=== PATIENT | male | born 2000 | race Two or more races ===

== ENCOUNTER 2019-12-28 17:19 | Emergency (ER) | payer MEDICAID, SELFPAY ==
[2019-12-28 17:24] VITALS: BP 133/78; PULSE 109; RESP 16; TEMP 36.8; O2SAT 97; BMI 41.3
--- NOTE | 2019-12-28 19:30 | ED_ITS ---
HPI - General Adult General Chief complaint: General Medical Stated complaint: blood in stool Time Seen by Provider: 12/28/19 19:30 History of Present Illness HPI narrative: Patient complains of several episodes of blood in the stool as well as intermittent abdominal pain epigastric area which is coming and going, he has no pain at this moment he has had no vomiting, yesterday he had multiple episodes of diarrhea associated with some blood mixed with the stool and today he had 2 episodes of small amounts of red blood in the toilet, there is no dizziness no weakness no fever no chills no chest pain and at this moment he has no abdominal pain, he is able to eat and drink Related Data Allergies Allergy/AdvReac Type Severity Reaction Status Date / Time nickel [NICKEL] Allergy Unknown RASH Unverified 10/27/19 19:16 Review of Systems Review of Systems: ROS is positive for blood in the stool, intermittent abdominal pain and diarrhea There is no weakness no fainting no bleeding from any other sites , no gum bleeding no nose bleeding no rash, no chest pain no dizziness no shortness of breath no palpitations, no trouble eating or drinking, no urinary symptom no pain with urination or frequency of urination PMFSH Past Medical History Source: nursing notes reviewed Medical History (Updated 12/28/19 @ 20:50 by KARLEE Hamlin) Asthma Social History Social History Alcohol intake: never Smoking Status: Never smoker Advance Directives: No Advance Directives Information Provided: Yes Physical Exam Vital Signs: Vital Signs: Last Vital Signs Temp 98.5 F 12/28/19 20:39 Pulse 99 12/28/19 20:39 Resp 18 12/28/19 20:39 BP 123/82 12/28/19 20:39 Pulse Ox 96 12/28/19 20:39 Body Mass Index 41.3 General appearance is no acute distress he is anicteric no pallor comfortable appearing and cooperative, a and O x3 The pharynx is clear and well hydrated the eyes are clear with no redness, anicteric no pallor Neck is supple Chest is clear to auscultation bilaterally The abdomen is soft and nontender no rebound no guarding Rectal exam there were no masses palpated there was no obvious blood on the glove, there was no black stool on the glove no lesions, no hemorrhoid, there was no tenderness There is no rashes there is no petechiae No leg swelling or edema neuro no focal deficit Course Course Course Narrative: Patient remains comfortable throughout visit with normal vital signs, no dizziness, normal hemoglobin hematocrit, normal platelets Stool was guaiac positive although no visible blood or black stool was on the glove Case is signed out to physician respiratory therapist assistant jacki at 09:00 o'clock to follow remaining LFTs and electrolyte panel and if normal to discharge patient Bleeding is likely from irritation from his diarrhea which was only 1 day in duration and is very inproved today Medical Decision Making Lab Data Lab results reviewed: Yes I reviewed the patient's lab results. Result diagrams: 12/28/19 20:20 12/28/19 20:20 Labs: Lab Results 12/28/19 12/28/19 Range/Units 20:20 20:20 WBC 16.3 H (4.8-10.8) X10*3/uL RBC 5.22 (4.60-5.80) X10*6/uL Hgb 16.0 (14.0-18.0) g/dl Hct 46.9 (42-52) % MCV 89.8 (80-98) fL MCH 30.7 (27.0-33.0) pg MCHC 34.1 (31.0-36.0) g/dl RDW 12.2 (11.0-16.0) % Plt Count 256 (160-400) X10*3/uL MPV 10.7 (9.4-12.4) fL Immature Gran % (Auto) 0.7 H (0.0-0.4) % Neut % (Auto) 63.4 (45-73) % Lymph % (Auto) 24.1 (20-40) % Morrill % (Auto) 7.0 (2-11) % Eos % (Auto) 4.2 H (0-4) % Baso % (Auto) 0.6 (0-2) % Lymph # (Auto) 3.9 (1.2-4.9) X10*3/uL Morrill # (Auto) 1.1 (0.1-1.2) X10*3/uL Eos # (Auto) 0.7 H (0.0-0.4) X10*3/uL Baso # (Auto) 0.1 (0.0-0.2) X10*3/uL Abs Immat Gran (auto) 0.11 H (0.00-0.03) X10*3/uL Absolute Neuts (auto) 10.3 H (2.0-8.3) X10*3/uL Absolute Nucleated RBC 0.000 (0.0-0.012) X10*3/uL Nucleated RBC % (auto) 0.0 (0.0-0.2) /100WBC Stool Occult Blood POS (NEG) Discharge Plan Discharge Clinical Impression: Rectal bleeding Diarrhea Qualifiers: Diarrhea type: unspecified type Qualified Code(s): R19.7 - Diarrhea, unspecified Patient Disposition: Home, Self-Care Additional Instructions: There is often some bleeding associated with diarrhea As symptoms have improved after just 24 hours there is no specific treatment needed now, your blood count was normal there was no anemia If symptoms continue you can use Imodium or Pepto-Bismol If bleeding worsens or if you become dizzy or weak or pain gets worse or any worse condition or concerns you can return to the ER any time Follow with primary care physician if not better in 2-3 days drink plenty of fluids
--- NOTE | 2019-12-28 19:48 | PC.NURSE ---
MD AT BEDSIDE FOR PRIMARY EVAL. PT REPORTS BRIGHT RED DIARRHEA BEGINNING YESTERDAY. REPORTS INTERMITTENT ABD PAIN, DENIES URINARY SYMPTOMS. DENIES N/V. AWAITING TESTING. AWARE OF PLAN OF CARE.
[2019-12-28 20:26] LABS: OBS Int Ctl Valid YES; OBS1 POS (NEG)
[2019-12-28 20:27] LABS: MANUAL DIFF FLAG NO
[2019-12-28 20:29] LABS: Basophils Absolute Auto 0.1 X10*3/uL (0.0-0.2); Basophils Percent Auto 0.6 % (0-2); Eosinophils Absolute Auto 0.7 X10*3/uL (0.0-0.4); Eosinophils Percent Auto 4.2 % (0-4); Hematocrit 46.9 % (42-52); Imm Gran Abs Auto 0.11 X10*3/uL (0.00-0.03); Imm Gran Pct Auto 0.7 % (0.0-0.4); Lymphocytes Absolute Auto 3.9 X10*3/uL (1.2-4.9); Lymphocytes Percent Auto 24.1 % (20-40); Mean Corpuscular HGB Conc 34.1 g/dl (31.0-36.0); Mean Corpuscular Hemoglobin 30.7 pg (27.0-33.0); Mean Corpuscular Volume 89.8 fL (80-98); Mean Platelet Volume 10.7 fL (9.4-12.4); Monocytes Absolute Auto 1.1 X10*3/uL (0.1-1.2); Neutrophils Absolute Auto 10.3 X10*3/uL (2.0-8.3); Neutrophils Percent Auto 63.4 % (45-73); Platelet Count 256 X10*3/uL (160-400); Red Blood Count 5.22 X10*6/uL (4.60-5.80); Red Cell Distribution Width 12.2 % (11.0-16.0); White Blood Count 16.3 X10*3/uL (4.8-10.8)
[2019-12-28 20:39] VITALS: BP 123/82; PULSE 99; RESP 18; TEMP 36.9; O2SAT 96
[2019-12-28 20:56] LABS: Alanine Aminotransferase 70 U/L (0-40); Albumin Level 4.5 g/dL (3.5-5.0); Alkaline Phosphatase 99 U/L (39-117); Anion Gap 15 (12-20); Aspartate Amino Transferase 38 U/L (5-37); Bilirubin Direct < 0.2 mg/dL (0.0-0.5); Bilirubin Total 0.4 mg/dL (0.0-1.0); Blood Urea Nitrogen 15 mg/dL (9-16); Calcium 9.7 mg/dL (8.4-10.2); Carbon Dioxide 22 mmol/L (22-29); Chloride 103 mmol/L (96-108); Creatinine Clr Calc Pharmacy 171.7; Estimated Glomerular Filt Rate > 60; Glucose Random 85 mg/dL (60-115); Lipase 23 U/L (8-78); Potassium 4.2 mmol/l (3.3-5.1); Sodium 136 mmol/L (135-145); Total Protein 7.6 g/dL (6.5-8.0)
== END 2019-12-28 21:21 | disposition home or self-care (01) ==
PROVIDERS: Physician Assistant Medical; Emergency Provider Emergency Medicine
DX: K62.5 Hemorrhage of anus and rectum (principal); R19.7 Diarrhea, unspecified; R10.13 Epigastric pain
CPT/HCPCS: 36415; 80048; 80076; 82272; 83690; 85025; 99283; 99284

== ENCOUNTER 2020-03-03 11:19 | Outpatient (REF) | payer MEDICAID, SELFPAY | END 2020-03-03 11:20 | disposition home or self-care (01) | LOC: HO.LAB 11:19 | PROVIDERS: Visit Provider Internal Medicine | DX: Z20.822 Contact with and (suspected) exposure to COVID-19 (principal) | CPT/HCPCS: 36415; C9803; U0003 ==

== ENCOUNTER 2020-05-22 08:24 | Outpatient (REF) | payer MEDICAID, SELFPAY ==
[2020-05-22 09:14] LABS: COVID-19 Test Negative (Negative)
[2020-05-22 09:15] LABS: IDNOW Serial# 55D5AD1C
== END 2020-05-22 08:25 | disposition home or self-care (01) ==
LOC: HO.LAB 08:24
PROVIDERS: Visit Provider Internal Medicine
DX: Z20.822 Contact with and (suspected) exposure to COVID-19 (principal)
CPT/HCPCS: 36415; 87635; C9803

== ENCOUNTER 2020-07-26 14:36 | Emergency (ER) | payer MEDICAID, SELFPAY ==
[2020-07-26 15:15] VITALS: BP 150/60; PULSE 62; RESP 17; TEMP 36.9; O2SAT 100; BMI 38.0
--- NOTE | 2020-07-26 15:36 | ED.GENADULT ---
HPI - General Adult General Chief complaint: General Medical Stated complaint: cold symptoms Source: patient Mode of arrival: ambulatory Limitations: no limitations History of Present Illness HPI narrative: Patient presents ED for sneezing and coughing since yesterday. patient denies any chest pain or shortness of breath. patient states malaise, but no fever or chills. Related Data Previous Rx's Medication Instructions Recorded benzonatate [Tessalon Perles] 100 mg PO BID PRN #15 cap 07/26/20 cetirizine 10 mg PO DAILY PRN #10 cap 07/26/20 Allergies Allergy/AdvReac Type Severity Reaction Status Date / Time nickel [NICKEL] Allergy Unknown RASH Verified 07/26/20 15:17 Review of Systems Review of Systems: Yes all other systems are reviewed and are negative Constitutional: Constitutional: Reports as per HPI and Reports no additional constitutional complaints Eyes: Eyes: Reports as per HPI and Reports no additional eye complaints ENT: Reports system reviewed and no additional complaints, except as documented and Reports as per HPI Comments: Sneezing Cardiovascular: Cardiovascular: Reports as per HPI, Reports no additional cardiovascular complaints, Denies chest pain and Denies dyspnea Respiratory: Respiratory: Reports as per HPI, Reports no additional respiratory complaints, Reports cough, Denies pain on inspiration and Denies dyspnea Gastrointestinal: Gastrointestinal: Reports as per HPI, Reports no additional gastrointestinal complaints, Denies abdominal pain, Denies diarrhea, Denies nausea, Denies vomiting and Denies hematemesis Genitourinary: Genitourinary: Reports no additional male genitourinary complaints and Reports as per HPI Musculoskeletal: Musculoskeletal: Reports no additional musculoskeletal complaints and Reports as per HPI Neurologic: Reports system reviewed and no additional complaints, except as documented and Reports as per HPI [facility] Past Medical History Medical History (Updated 07/26/20 @ 16:39 by KARLEE Kenny) Asthma Social History Social History Alcohol intake: never Advance Directives: No Advance Directives Information Provided: No Physical Exam Vital Signs: Vital Signs: Last Vital Signs Temp 98.5 F 07/26/20 15:15 Pulse 62 07/26/20 15:15 Resp 17 07/26/20 15:15 BP 150/60 H 07/26/20 15:15 Pulse Ox 100 07/26/20 15:15 Body Mass Index 38.0 Const: General: cooperative, healthy appearing, comfortable, no acute distress, well developed, alert, awake and Physically active Orientation/consciousness: patient oriented x3 HENMT: Head: Yes normal to inspection, Yes No palpable skull fracture present, Yes normocephalic and Yes atraumatic Ears: hearing grossly normal bilaterally, external ears normal and TM's normal bilaterally General nose exam: Normal external nose present and Normal nares present Eyes: General: appearance normal, both eyes and all related structures Neck: Neck: Yes normal visual inspection, Yes full ROM, Yes no lymphadenopathy, Yes no meningeal signs, Yes trachea midline, Yes supple and No tender Chest: Chest palpation & inspection: normal inspection of the chest and normal palpation of entire chest wall Resp: Effort & Inspection: normal respiratory effort and able to speak in complete sentences Auscultation: clear to auscultation bilaterally Cardio: Jugular venous distension: no JVD Heart sounds: S1 normal heart sound present and S2 normal heart sound present GI: Inspection: Yes normal to inspection and No abdominal wall ecchymosis Palpation (GI): Soft to palpation, not firm, nontender, no guarding and not rigid : General: No CVA tenderness and Yes no CVA tenderness Back/Spine/Pelvis: Back: no CVA tenderness, No CVA tenderness and No back tenderness Skin: General skin exam: no rashes or lesions noted and elasticity normal Neuro: General: patient oriented x3, gait normal, no meningeal signs and CN's II-XI intact bilaterally Cranial nerves: Yes CN's II-XII intact bilaterally Extrem: General: Yes normal to inspection and Yes full ROM Psych: Appearance: grossly normal, well kempt and not disheveled Course Course Course Narrative: will order COVID swab for patient. Patient vital signs stable Reevaluation(s) Reevaluation #1: Patient's COVID swab came back negative. Time: 16:37 Medical Decision Making [facility] Narrative Medical decision making narrative: URI versus Rhinitis Lab Data Labs: Lab Results 07/26/20 Range/Units 15:54 COVID-19 (DA) Negative (Negative) COVID-19 Clin Com See Note Discharge Plan Discharge Clinical Impression: URI (upper respiratory infection) Patient Disposition: Home, Self-Care Instructions: Upper Respiratory Infection (ED), Allergic Rhinitis (ED) Additional Instructions: You were diagnosed with URI vs allergic rhinitis due to sneezing and cougning. Return to the ED for any chest pain, shortness of breath, leg swelling, coughing up blood, fever, chills, or any other concerning symptoms. A COVID swab came back negative. This may be a false negative due to you having symptoms yesterday and being testing today. Body might not have had enough viral load. IF Symptoms worsen recommend retesting in 72 hours or self-quarantine. please follow up with PCP Prescriptions: New benzonatate [Tessalon Perles] 100 mg capsule 100 mg PO BID PRN (Reason: cough) Qty: 15 RF: 0 cetirizine 10 mg capsule 10 mg PO DAILY PRN (Reason: sneezing) Qty: 10 RF: 0 Stand Alone Forms: Work/School Release Interventions: ED Discharge Assessment Last Done: 07/26/20 16:49 Discharge Date/Time: 07/26/20 16:49 Print Language: Macedonian
[2020-07-26 16:17] LABS: COVID-19 Test Negative (Negative)
== END 2020-07-26 16:49 | disposition home or self-care (01) ==
PROVIDERS: Physician Assistant; Emergency Provider Emergency Medicine
DX: J06.9 Acute upper respiratory infection, unspecified (principal); Z20.822 Contact with and (suspected) exposure to COVID-19
CPT/HCPCS: 36415; 87635; 99283

== ENCOUNTER 2023-01-01 18:32 | Emergency (ER) | payer MEDICAID, SELFPAY ==
[2023-01-01 18:56] VITALS: BP 139/76; PULSE 95; RESP 18; TEMP 37.1; O2SAT 95; BMI 37.6
--- NOTE | 2023-01-01 19:01 | ED_ITS ---
HPI - General Adult General Chief complaint: Ear Problems Stated complaint: cotton stuck in lt ear Time Seen by Provider: 01/01/23 19:00 Source: patient Mode of arrival: ambulatory Limitations: no limitations History of Present Illness HPI narrative: Patient is a 22-year-old male presenting to the emergency department with complaint of Q-tip cotton stuck in left ear canal for approximately 1 hour. He denies pain or difficulty hearing. MD complaint: foreign body left ear Onset (ago): hour(s) Location: left (ear) Relieving factors: none Exacerbating factors: none Associated symptoms: denies other symptoms Treatments prior to arrival: none Related Data Previous Rx's Medication Instructions Recorded benzonatate 100 mg capsule 100 mg PO BID PRN cough #15 caps 07/26/20 (Teshayley Mendoza) cetirizine 10 mg capsule 10 mg PO DAILY PRN sneezing #10 07/26/20 caps Allergies Allergy/AdvReac Type Severity Reaction Status Date / Time nickel [NICKEL] Allergy Unknown RASH Verified 01/01/23 18:59 Review of Systems Review of Systems: As per HPI. Yes all other systems are reviewed and are negative Constitutional: Constitutional: Reports as per HPI [facility] Past Medical History Medical History (Updated 01/01/23 @ 19:02 by Lacey Cheek NP) Asthma Social History Alcohol intake: never Physical Exam ED Vital Signs: Vital Signs - 24 hr 01/01/23 18:56 Temperature 98.8 F Pulse Rate 95 Respiratory Rate 18 Blood Pressure 139/76 Pulse Oximetry 95 Oxygen Delivery Method Room Air BMI result Body Mass Index 37.6 Vital signs have been reviewed and appear to be correct. Blood pressure normal. Heart rate normal. Respiratory rate normal. Temperature normal. Oxygen saturation normal. Const General: cooperative, healthy appearing and no acute distress Orientation/consciousness: oriented to person, oriented to place, oriented to time and patient oriented x3 Limitations: no limitations HENMT Head: Yes normocephalic and Yes atraumatic Ears: external ears normal and Abnormal EAC present foreign body on the left (cotton) General nose exam: Normal external nose present Face and sinus: Yes face symmetric Mouth: oropharynx normal and moist mucous membranes Throat: Yes uvula midline Eyes Pupils: Equal, round and reactive pupils present Neck Neck: Yes normal visual inspection and Yes supple Resp Effort & Inspection: normal respiratory effort and able to speak in complete sentences Auscultation: clear to auscultation bilaterally Cardio Rate: regular rate Rhythm: regular rhythm Heart sounds: S1 normal heart sound present and S2 normal heart sound present GI Palpation (GI): Soft to palpation and nontender Auscultation: normoactive bowel sounds General: Yes no CVA tenderness Back/Spine/Pelvis Back: no CVA tenderness Skin General skin exam: elasticity normal and turgor normal Neuro General: oriented to person, oriented to place, oriented to time, patient oriented x3, moves all extremities, no focal motor deficits and CN's II-XI intact bilaterally Cranial nerves: Yes Equal, round and reactive pupils present Cognition (Neuro): normal cognition Extrem General: Yes full ROM, Yes no pedal edema and Yes no calf tenderness Psych Mental Status: mental status grossly normal Affect: normal affect Thought process: Normal thought process present Procedures Foreign Body Removal Time Out Performed: yes Site: left and ear Description of foreign body: other (cotton ) Sedation/Analgesia: none Technique: removal with forceps (alligator) Confirmed by:: direct visualization Complications: none Post-procedure exam: awake, alert Neurovascular: no change from pre-procedure Medical Decision Making Medical Decision Making [facility] Narrative: Patient is a 22-year-old male presenting to the emergency department with complaint of Q-tip cotton stuck in left ear canal for approximately 1 hour. On exam patient is awake, A+Ox3, VS WNL, afebrile, normal neurological exam without focal deficits, physical exam findings as above. Given reported symptoms and physical exam findings, initial differential includes foreign body, cerumen impaction, otitis media. Foreign body removed as per procedure note. Patient tolerated procdure well. Advised patient to avoid insertion of Q-tips into ears going forward. Return precautions discussed. Patient verbalized understanding of and agreement with plan. Differential Diagnosis Differential Diagnoses: The differential diagnosis associated with the presentation includes As per MDM External Record Review External record reviewed: Inpatient record, Office record and Outpatient record Discharge Plan Discharge Clinical Impression: Foreign body in left ear Patient Disposition: Home, Self-Care Instructions: Ear Foreign Body (ED) Additional Instructions: You were evaluated in the emergency department today for a foreign body in your left ear. The item was removed in the emergency department. In the future, do not insert Q-tips into your ears. Please follow-up with your primary care provider for any ongoing concerns. Prescriptions: No Action benzonatate [Tessalon Reji] 100 mg capsule 100 mg PO BID PRN (Reason: cough) Qty: 15 0RF cetirizine 10 mg capsule 10 mg PO DAILY PRN (Reason: sneezing) Qty: 10 0RF
== END 2023-01-01 19:44 | disposition home or self-care (01) ==
PROVIDERS: Emergency Provider Emergency Medicine Emergency Medical Services
DX: T16.2XXA Foreign body in left ear, initial encounter (principal); W44.8XXA Other foreign body entering into or through a natural orifice, initial encounter; Y93.E8 Activity, other personal hygiene; Y92.9 Unspecified place or not applicable; Y99.9 Unspecified external cause status
CPT/HCPCS: 69200; 99281; 99284

== ENCOUNTER 2023-04-18 16:17 | Emergency (ER) | payer MEDICAID, SELFPAY ==
--- NOTE | ~2023-04-18 | XR_ITS ---
EXAMINATION: XR CHEST CLINICAL INFORMATION: Cough, asthma COMPARISON: None available. TECHNIQUE: 2 views of the chest were obtained. FINDINGS: Moderate peribronchial thickening consistent with airway disease. No significant abnormality is otherwise noted involving the heart, lungs, mediastinum, bony thorax or soft tissues. XR/XR chest 2V IMPRESSION: Findings consistent with airway disease as above. No focal infiltrate.
[2023-04-18 16:36] VITALS: BP 140/77; PULSE 116; RESP 18; TEMP 38.9; O2SAT 98; BMI 38.4
--- NOTE | 2023-04-18 16:36 | ED.GENADULT ---
HPI - General Adult General Chief complaint: Upper Respiratory Symptoms Stated complaint: Flu like symptoms Time Seen by Provider: 04/18/23 16:56 Source: patient Mode of arrival: ambulatory Limitations: no limitations History of Present Illness HPI narrative: Patient is a 22 year old assigned male at with a history of asthma presenting to the emergency department today with body aches, chills, fever, and sore throat. Patient states that over the last day especially he has felt worse with body aches, chills, fever, and a sore throat. Patient denies any dizziness, lightheadedness, abdominal pain, nausea, vomiting, blurry vision, double vision, loss of vision, chest pain, difficulty breathing, shortness of breath, back pain, night sweats, pain with urination, increased urinary frequency, increased urinary urgency, blood in his urine or stool, syncope or a near syncopal episode, recent trauma or falls, bowel incontinence, bladder incontinence, bowel retention, bladder retention, or any other complaints at this time. Onset (ago): day(s) Relieving factors: none Exacerbating factors: none Associated symptoms: fever/chills Treatments prior to arrival: none Related Data Previous Rx's Medication Instructions Recorded benzonatate 100 mg capsule 100 mg PO BID PRN cough #15 caps 07/26/20 (Tessalon Perles) cetirizine 10 mg capsule 10 mg PO DAILY PRN sneezing #10 07/26/20 caps oseltamivir 75 mg capsule (Tamiflu) 75 mg PO DAILY 5 days #5 caps 04/18/23 Allergies Allergy/AdvReac Type Severity Reaction Status Date / Time nickel [NICKEL] Allergy Unknown RASH Verified 04/18/23 16:36 Review of Systems Constitutional: Constitutional: Reports no additional constitutional complaints, Reports body ache(s), Reports chills, Reports fever(s) and Denies night sweats Eyes: Eyes: Reports no additional eye complaints, Denies blurry vision, Denies change in vision, Denies diplopia, Denies eye discharge, Denies loss of vision and Denies eye pain ENT: Denies dizziness and Reports sore throat Cardiovascular: Cardiovascular: Reports no additional cardiovascular complaints, Denies chest pain, Denies lightheadedness, Denies Loss of Consciousness and Denies dyspnea Respiratory: Respiratory: Reports no additional respiratory complaints, Reports cough and Denies dyspnea Gastrointestinal: Gastrointestinal: Reports no additional gastrointestinal complaints, Denies abdominal pain, Denies melena, Denies hematochezia, Denies change in bowel habits and Denies change in stool character Genitourinary: Genitourinary: Reports no additional male genitourinary complaints, Denies hematuria, Denies oliguria, Denies difficulty urinating, Denies dysuria, Denies urinary frequency, Denies urinary hesitancy, Denies urinary incontinence and Denies urinary urgency Musculoskeletal: Musculoskeletal: Reports no additional musculoskeletal complaints, Denies numbness and Denies tingling Neurologic: Denies dizziness, Denies loss of vision, Denies numbness and Denies tingling Psychiatric: Psychiatric: Reports no additional psychiatric complaints Endocrine: Endocrine: Reports no additional endocrine complaints Hematologic/Lymphatic: Hematologic/Lymphatic: Reports no additional hematologic/lymphatic complaints Allergic/Immunologic: Allergic/Immunologic: Reports no additional allergic/immunologic complaints PMFSH Past Medical History Attestation statement: The following information was validated with the patient. Source: old records reviewed and nursing notes reviewed Medical History Asthma Social History Social History Alcohol intake: never Advance Directives: No Advance Directives Information Provided: No Physical Exam ED Vital Signs: Vital Signs - 24 hr 04/18/23 16:36 04/18/23 17:47 Temperature 102.1 F H 100.2 F Pulse Rate 116 H Respiratory Rate 18 Blood Pressure 140/77 H Pulse Oximetry 98 Oxygen Delivery Method Room Air BMI result Body Mass Index 38.4 Const General: cooperative, no acute distress, alert and awake Nutritional Appearance: well nourished Orientation/consciousness: patient oriented x3 Limitations: no limitations [facility] Head: Yes normal to inspection and Yes atraumatic Ears: hearing grossly normal bilaterally and external ears normal General nose exam: Normal external nose present, no nasal discharge noted and no epistaxis Face and sinus: Yes normal facial exam, No abrasion and No laceration Mouth: Normal oral and palatal mucosa present, no drooling and no muffled voice Eyes General: appearance normal, both eyes and all related structures Periorbital: periorbital findings normal Eyelids: Yes eyelids normal Conjunctivae: conjunctivae normal Pupils: Equal, round and reactive pupils present EOM: EOMs intact bilaterally Neck Neck: Yes normal visual inspection, Yes full ROM and Yes no lymphadenopathy Chest Chest palpation & inspection: normal inspection of the chest Resp Effort & Inspection: normal respiratory effort and able to speak in complete sentences GI Inspection: Yes normal to inspection Neuro General: patient oriented x3 and moves all extremities Cranial nerves: Yes Equal, round and reactive pupils present Cognition (Neuro): normal cognition Motor exam (neuro): 5/5 motor strength present throughout Sensory Exam: Normal double simultaneous stimulation for sensation Coordination: [id number] test normal Extrem General: Yes normal to inspection, Yes full ROM and Yes capillary refill normal Psych Appearance: grossly normal Mental Status: mental status grossly normal Affect: normal affect Attitude: cooperative Thought process: Normal thought process present Thought content: Normal thought content present Insight: Good insight present (Psych) Course Course Course Narrative: This is a rapid medical exam: Additional HPI, ROS, PE not included below will be deferred to primary provider. Patient is a 22-year-old male presenting to the ED with cough, sore throat, sweat/chills, sneezing, nausea since yesterday. Has been taking Mucinex and Tylenol, last dose around 11am. Plan: strep and viral swabs Medications Administered Discontinued Medications Generic Name Dose Route Start Last Admin Trade Name Freq PRN Reason Stop Dose Admin Dexamethasone Sodium Phosphate 10 mg 04/18/23 17:48 04/18/23 18:14 Dexamethasone Sod Phosphate 10 Mg/Ml Vial PO 04/18/23 17:49 10 mg ONCE ONE Administration Ibuprofen 600 mg 04/18/23 16:39 04/18/23 16:41 Ibuprofen 600 Mg Tablet PO 04/18/23 16:40 600 mg ONCE ONE Administration Medical Decision Making Medical Decision Making [facility] Narrative: Patient is a 22 year old assigned male at with a history of asthma presenting to the emergency department today with a cough, fever, body aches, and sore throat. Patient's physical exam was unremarkable. Patient's COVID-19, RSV, and strep tests were negative. Patient's influenza test was positive. Patient's chest x-ray showed no acute process. I explained my physical exam findings as well as all test results to the patient. I answered all questions asked by the patient. I stressed the importance of the patient taking his medication as prescribed. I stressed the importance of the patient following up with his primary care provider. I stressed the importance of the patient returning to the emergency department immediately if his symptoms were to worsen or if he were to develop any dizziness, shortness of breath, difficulty breathing, chest pain, blurry vision, loss of vision, nausea, vomiting, abdominal pain, fever, chills, back pain, or any other complaints. Patient verbalized agreement and understanding with this treatment plan and discharge. Differential Diagnosis Differential Diagnoses: The differential diagnosis associated with the presentation includes Influenza RSV COVID-19 Strep pharyngitis Viral illness Admission/Observation Consideration of admission/observation: Escalation of care including admission/observation considered Patient would have been admitted to the hospital had his work up had any findings where hospital admission was appropriate and his clinical presentation warranted hospital admission. Lab Data [facility] Lab Attestation statement: I reviewed the patient's lab results. My interpretation of these results are in the [facility] Rationale portion of this note. Labs: Lab Results 04/18/23 Range/Units 16:49 Influenza Type A (PCR) POSITIVE A (Negative) Influenza Type B (PCR) NEGATIVE (Negative) RSV RNA Qual (PCR) NEGATIVE (Negative) SARS-CoV-2 RNA (RT-PCR) NEGATIVE (Negative) Independent Interpretation I performed an independent interpretation of an: Plain X-Ray Interpretation: My interpretation is in agreement with the radiologist's impression of this imaging study. EXAMINATION: XR CHEST CLINICAL INFORMATION: Cough, asthma COMPARISON: None available. TECHNIQUE: 2 views of the chest were obtained. FINDINGS: Moderate peribronchial thickening consistent with airway disease. No significant abnormality is otherwise noted involving the heart, lungs, mediastinum, bony thorax or soft tissues. XR/XR chest 2V IMPRESSION: Findings consistent with airway disease as above. No focal infiltrate. Dictated By: Krunal Segovia MD Signed By: Electronically signed by Krunal Segovia MD 04/18/23 2052 Prescription Management I considered prescription management with: Antiviral (patient prescribed tamiflu) Discharge Plan Discharge Clinical Impression: Influenza Patient Disposition: Home, Self-Care Instructions: Influenza (DC) Additional Instructions: Your chest x-ray showed no acute process. You tested positive for Influenza. Follow up with your primary care provider. Return to the emergency department immediately if your symptoms worsen or if you develop any dizziness, shortness of breath, difficulty breathing, chest pain, blurry vision, loss of vision, nausea, vomiting, abdominal pain, fever, chills, back pain, or any other complaints. Prescriptions: New oseltamivir [Tamiflu] 75 mg capsule 75 mg PO DAILY 5 Days Qty: 5 0RF No Action benzonatate [Tessalon Perles] 100 mg capsule 100 mg PO BID PRN (Reason: cough) Qty: 15 0RF cetirizine 10 mg capsule 10 mg PO DAILY PRN (Reason: sneezing) Qty: 10 0RF Referrals: [facility] Family Medicine [Provider Group] (Call to establish and follow up with a primary care provider. If you already have a primary care provider, please follow up with them.) [facility] [Provider Group] (Call to establish and follow up with a primary care provider. If you already have a primary care provider, please follow up with them.) [facility] Primary Care,[facility] [Provider Group] (Call to establish and follow up with a primary care provider. If you already have a primary care provider, please follow up with them.) Stand Alone Forms: Work/School Release Interventions: ED Discharge Assessment Last Done: 04/18/23 18:28 Discharge Date/Time: 04/18/23 18:28 Print Language: Kiswahili
[2023-04-18] MEDS: Ibuprofen 600 MG TABLET PO (16:41)
[2023-04-18 17:06] LABS: IDNOW Serial# 08D9AD1C; Strep A Nucleic Acid Negative (Negative)
[2023-04-18 17:34] LABS: Influenza A PCR POSITIVE (Negative); Influenza B PCR NEGATIVE (Negative); Resp Syncy Virus RNA Qual PCR NEGATIVE (Negative); SARS COV2 PCR INHOUSE NEGATIVE (Negative)
[2023-04-18 17:47] VITALS: TEMP 37.9
[2023-04-18] MEDS: dexAMETHasone sod phosphate 10 MG/ML VIAL PO (18:14)
== END 2023-04-18 18:28 | disposition home or self-care (01) ==
PROVIDERS: Registered Nurse Emergency; Emergency Provider Emergency Medicine Emergency Medical Services
DX: J10.1 Influenza due to other identified influenza virus with other respiratory manifestations (principal); J02.9 Acute pharyngitis, unspecified; R50.9 Fever, unspecified
CPT/HCPCS: 0241U; 71046; 87651; 99283; J1100

== ENCOUNTER 2023-04-20 21:06 | Emergency (ER) | payer MEDICAID, SELFPAY ==
--- NOTE | ~2023-04-20 | XR_ITS ---
EXAMINATION: XR CHEST CLINICAL INFORMATION: Chest tightness COMPARISON: Chest radiograph from 04/18/2023 TECHNIQUE: Frontal view of the chest was obtained. FINDINGS: Bronchial thickening which can be seen in setting of infectious/inflammatory etiology. Bilateral low lung volumes. Slight elevation the right hemidiaphragm. No pneumothorax. Trachea is midline. Cardiac mediastinal silhouette is not enlarged. No large pleural effusion. Osseous structures are intact. Soft tissues are unremarkable. XR/XR chest 1V IMPRESSION: 1. Bronchial thickening which can be seen in setting of infectious/inflammatory etiology. 2. Bilateral low lung volumes. 3. Slight elevation the right hemidiaphragm.
[2023-04-20 21:40] VITALS: BP 145/79; PULSE 107; RESP 20; TEMP 35.4; O2SAT 97; BMI 36.8
[2023-04-21 00:07] LABS: MANUAL DIFF FLAG NO
[2023-04-21 00:08] LABS: Basophils Percent Auto 0.2 % (0-2); Eosinophils Percent Auto 0.1 % (0-4); Hematocrit 43.2 % (42.0-52.0); Hemoglobin 14.8 g/dl (14.0-18.0); Imm Gran Abs Auto 0.06 X10*3/uL (0.00-0.03); Imm Gran Pct Auto 0.4 % (0.0-0.4); Lymphocytes Absolute Auto 1.4 X10*3/uL (1.2-4.9); Lymphocytes Percent Auto 10.2 % (20-40); Mean Corpuscular HGB Conc 34.3 g/dl (31.0-36.0); Mean Corpuscular Hemoglobin 30.7 pg (27.0-33.0); Mean Corpuscular Volume 89.6 fL (80.0-98.0); Mean Platelet Volume 10.1 fL (9.4-12.4); Monocytes Absolute Auto 1.1 X10*3/uL (0.1-1.2); Monocytes Percent Auto 7.7 % (2-11); Neutrophils Absolute Auto 11.1 x10*3/uL (2.0-8.3); Neutrophils Percent Auto 81.4 % (45-73); Platelet Count 218 X10*3/uL (160-400); Red Blood Count 4.82 X10*6/uL (4.60-5.80); Red Cell Distribution Width 12.1 % (11.0-16.0); White Blood Count 13.7 X10*3/uL (4.8-10.8)
[2023-04-21 00:22] LABS: Alanine Aminotransferase 35 U/L (0-40); Albumin Level 4.4 g/dL (3.5-5.0); Alkaline Phosphatase 71 U/L (39-117); Anion Gap 12 (12-20); Aspartate Amino Transferase 21 U/L (5-37); Bilirubin Total 0.3 mg/dL (0.0-1.0); Blood Urea Nitrogen 18 mg/dL (9-16); Calcium 9.1 mg/dL (8.4-10.2); Carbon Dioxide 26 mmol/L (22-29); Chloride 107 mmol/L (96-108); Creatinine Clr Calc Pharmacy 145.7; Estimated Glomerular Filt Rate > 60; Glucose Random 99 mg/dL (60-115); Potassium 3.9 mmol/L (3.3-5.1); Sodium 141 mmol/L (135-145)
[2023-04-21 01:18] VITALS: BP 130/64; PULSE 124; RESP 21; TEMP 38.4; O2SAT 95
[2023-04-21] MEDS: Albuterol/Iprat 2.5/0.5MG 3 ML AMPUL.NEB INHALE (01:43)
[2023-04-21 01:44] VITALS: PULSE 110; RESP 20; O2SAT 98
[2023-04-21] MEDS: Acetaminophen 325 MG TABLET 975 MG PO (02:00)
[2023-04-21] MEDS: Ibuprofen 400 MG TABLET PO (02:00)
--- NOTE | 2023-04-21 02:01 | PC.NURSE ---
pt medicated per mar, tolerated well with water. provider aware of pt temperature.
[2023-04-21] MEDS: levalbuterol HCL 1.25 MG/3 ML VIAL.NEB 2.5 MG INHALE (02:08)
[2023-04-21 02:09] VITALS: PULSE 128; RESP 20; O2SAT 98
[2023-04-21 02:12] LABS: Influenza A PCR POSITIVE (Negative); Influenza B PCR NEGATIVE (Negative); Resp Syncy Virus RNA Qual PCR NEGATIVE (Negative); SARS COV2 PCR INHOUSE NEGATIVE (Negative)
--- NOTE | 2023-04-21 02:21 | ED_ITS ---
HPI - SOB/Dyspnea General Chief Complaint: Dyspnea Stated Complaint: difficulty breathing, asthmatic Time Seen by Provider: 04/21/23 01:27 Source: patient Mode of arrival: ambulatory History of Present Illness HPI Narrative: 22-year-old male with history of asthma and also diagnosed with flu on Thursday presents with increasing difficulty of breathing, fatigued, weak. Related Data Previous Rx's Medication Instructions Recorded benzonatate 100 mg capsule 100 mg PO BID PRN cough #15 caps 07/26/20 (Teshayley Mendoza) cetirizine 10 mg capsule 10 mg PO DAILY PRN sneezing #10 07/26/20 caps oseltamivir 75 mg capsule (Tamiflu) 75 mg PO DAILY 5 days #5 caps 04/18/23 albuterol sulfate 90 mcg/actuation 2 puff inhalation Q4-6H PRN 04/21/23 aerosol inhaler (Ventolin HFA) shortness of breath or wheezing #8.5 grams prednisone 50 mg tablet 50 mg PO DAILY 4 days #4 tabs 04/21/23 Allergies Allergy/AdvReac Type Severity Reaction Status Date / Time nickel [NICKEL] Allergy Unknown RASH Verified 04/20/23 21:39 Review of Systems 2 Review of Systems: Pertinent positives and negatives as stated in HPI [facility] Past Medical History Source: nursing notes reviewed Medical History Asthma Social History Social History Alcohol intake: never Advance Directives: No Advance Directives Information Provided: No Physical Exam 2 Vital Signs: Vital Signs: Last Vital Signs Temp 101.2 F H 04/21/23 01:18 Pulse 128 H 04/21/23 02:09 Resp 20 04/21/23 02:09 BP 130/64 04/21/23 01:18 Pulse Ox 95 04/21/23 01:18 O2 Del Method Room Air 04/21/23 01:18 BMI result Body Mass Index 36.8 VITAL SIGNS: Reviewed. GENERAL: Well developed, well nourished, in no acute distress. HEAD: Normocephalic/atraumatic EYES: PERRLA, EOMI EARS: Ext canals without abnormality, TMs non-bulging and non-erythematous NOSE: Nares patent bilateral OROPHARYNX: no oral lesions noted, posterior pharynx clear and non-erythematous without noted tonsillar enlargement/erythema/exudates NECK: Supple, no adenopathy LUNGS: Good inspiratory effort with mild expiratory wheeze bilaterally, mild tachypnea. SpO2<95> CARDIOVASCULAR: Regular rate and rhythm without noted murmurs ABDOMEN: Soft, non-tender, non-distended with bowel sounds. MUSCULOSKELETAL: No tenderness, deformities, or effusions noted on gross inspection. EXTREMITIES: No cyanosis, clubbing or edema. SKIN: Inspection of the skin reveals no rashes NEUROLOGIC: Alert and oriented x 4. Strength and sensation to light touch were grossly intact x 4. Medications Administered Discontinued Medications Generic Name Dose Route Start Last Admin Trade Name Freq PRN Reason Stop Dose Admin Acetaminophen 975 mg 04/21/23 01:28 04/21/23 02:00 Acetaminophen 325 Mg Tablet PO 04/21/23 01:29 975 mg ONCE ONE Administration Albuterol Sulfate 5 mg 04/21/23 01:54 04/21/23 01:58 Albuterol Sulfate (0.083%) 2.5 Mg/3 Ml Vial.Neb INHALE 04/21/23 01:55 Not Given ONCE ONE Albuterol/Ipratropium 3 ml 04/21/23 01:35 04/21/23 01:43 Albuterol/Iprat 2.5/0.5mg 3 Ml Ampul.Neb INHALE 04/21/23 01:36 3 ml ONCE ONE Administration Ibuprofen 400 mg 04/21/23 01:28 04/21/23 02:00 Ibuprofen 400 Mg Tablet PO 04/21/23 01:29 400 mg ONCE ONE Administration Levalbuterol HCl 2.5 mg 04/21/23 02:05 04/21/23 02:08 Levalbuterol Hcl 1.25 Mg/3 Ml Vial.Neb INHALE 04/21/23 02:06 2.5 mg ONCE ONE Administration Prednisone 50 mg 04/21/23 02:26 04/21/23 02:49 Prednisone 10 Mg Tablet PO 04/21/23 02:27 50 mg ONCE ONE Administration Medical Decision Making Medical Decision Making MDM Narrative: 22-year-old male with history and clinical presentation, DDX: PNA, asthma, known viral illness/influenza A. I reviewed all investigations and patient has chronically elevated leukocytosis but no anemia or thrombocytopenia. Chemistry indices are negative for ANTWAN/electrolyte/liver enzyme derangements. Viral testing is positive for influenza A consistent with findings on Thursday. Chest x-ray negative for infiltrate or venous congestion but does demonstrate bronchial airway thickening and clinical exam demonstrated some expiratory wheeze, patient is otherwise not hypoxic. INTERVENTION: Tylenol/ibuprofen/ED Bronch protocol My interpretation is it patient has a viral syndrome with poorly controlled fever, known to be influenza A positive, and mild asthma exacerbation patient received nebulized treatments as well as initial steroids and was otherwise discharged home. Differential Diagnosis Differential Diagnoses: The differential diagnosis associated with the presentation includes Please see the discussion above Admission/Observation Consideration of admission/observation: Escalation of care including admission/observation considered Please see the discussion above Lab Data MDM Lab Attestation statement: I reviewed the patient's lab results. Please see the discussion 04/20/23 23:46 04/20/23 23:46 Labs: Lab Results 04/20/23 04/21/23 Range/Units 23:46 01:30 WBC 13.7 H (4.8-10.8) X10*3/uL RBC 4.82 (4.60-5.80) X10*6/uL Hgb 14.8 (14.0-18.0) g/dl Hct 43.2 (42.0-52.0) % MCV 89.6 (80.0-98.0) fL MCH 30.7 (27.0-33.0) pg MCHC 34.3 (31.0-36.0) g/dl RDW 12.1 (11.0-16.0) % Plt Count 218 (160-400) X10*3/uL MPV 10.1 (9.4-12.4) fL Immature Gran % (Auto) 0.4 (0.0-0.4) % Neut % (Auto) 81.4 H (45-73) % Lymph % (Auto) 10.2 L (20-40) % [place] % (Auto) 7.7 (2-11) % Eos % (Auto) 0.1 (0-4) % Baso % (Auto) 0.2 (0-2) % Lymph # (Auto) 1.4 (1.2-4.9) X10*3/uL [place] # (Auto) 1.1 (0.1-1.2) X10*3/uL Eos # (Auto) 0.0 (0.0-0.4) X10*3/uL Baso # (Auto) 0.0 (0.0-0.2) X10*3/uL Abs Immat Gran (auto) 0.06 H (0.00-0.03) X10*3/uL Absolute Neuts (auto) 11.1 H (2.0-8.3) x10*3/uL Absolute Nucleated RBC 0.000 (0.0-0.012) X10*3/uL Nucleated RBC % (auto) 0.0 (0.0-0.2) /100WBC Sodium 141 (135-145) mmol/L Potassium 3.9 (3.3-5.1) mmol/L Chloride 107 (96-108) mmol/L Carbon Dioxide 26 (22-29) mmol/L Anion Gap 12 (12-20) BUN 18 H (9-16) mg/dL Creatinine 0.91 (0.5-1.4) mg/dL Estim Creat Clear Calc 145.7 Estimated GFR > 60 Random Glucose 99 (60-115) mg/dL Calcium 9.1 D (8.4-10.2) mg/dL Total Bilirubin 0.3 (0.0-1.0) mg/dL AST 21 (5-37) U/L ALT 35 (0-40) U/L Alkaline Phosphatase 71 (39-117) U/L Total Protein 8.0 (6.5-8.0) g/dL Albumin 4.4 (3.5-5.0) g/dL Influenza Type A (PCR) POSITIVE A (Negative) Influenza Type B (PCR) NEGATIVE (Negative) RSV RNA Qual (PCR) NEGATIVE (Negative) SARS-CoV-2 RNA (RT-PCR) NEGATIVE (Negative) Radiology Impression Discussion of test interpretation with radiology: I have reviewed the radiologist's reading. Radiologist Impression: Please see the discussion above External Record Review External record reviewed: Outpatient record, Prior outpatient labs and Prior outpatient radiology Chronic Conditions Patient?s care impacted by: Other Asthma Critical Care Time Critical Care Time Critical Care Time: Yes Total Critical Care Time: 60 Attestation: I personally attest to this time spent taking care of the patient. Discharge Plan Discharge Clinical Impression: Viral syndrome, Influenza A, Asthma Patient Disposition: Home, Self-Care Instructions: Asthma (ED), Influenza (ED), Viral Syndrome (ED) Additional Instructions: 1. Please complete the course of steroids as prescribed. 2. Recommend regular Tylenol and ibuprofen especially if you have an elevated temperature, you should check your temperature intermittently. Return to the ER for any worsening symptoms. Prescriptions: New albuterol sulfate [Ventolin HFA] 90 mcg/actuation HFA aerosol inhaler 2 puff inhalation Q4-6H PRN (Reason: shortness of breath or wheezing) Qty: 8.5 0RF prednisone 50 mg tablet 50 mg PO DAILY 4 Days Qty: 4 0RF No Action benzonatate [Tessalon Perles] 100 mg capsule 100 mg PO BID PRN (Reason: cough) Qty: 15 0RF cetirizine 10 mg capsule 10 mg PO DAILY PRN (Reason: sneezing) Qty: 10 0RF oseltamivir [Tamiflu] 75 mg capsule 75 mg PO DAILY 5 Days Qty: 5 0RF
[2023-04-21] MEDS: predniSONE 10 MG TABLET 50 MG PO (02:49)
[2023-04-21 04:11] VITALS: BP 126/62; PULSE 111; RESP 17; TEMP 37.4; O2SAT 96
== END 2023-04-21 04:46 | disposition home or self-care (01) ==
PROVIDERS: Emergency Provider Student in an Organized Health Care Education/Training Program
DX: J10.1 Influenza due to other identified influenza virus with other respiratory manifestations (principal); B34.9 Viral infection, unspecified; J45.909 Unspecified asthma, uncomplicated; Z11.52 Encounter for screening for COVID-19; Z20.828 Contact with and (suspected) exposure to other viral communicable diseases
CPT/HCPCS: 0241U; 36415; 71045; 80053; 85025; 94640; 99284